=== PATIENT | female | born 2000 | race Two or more races ===

== ENCOUNTER 2019-09-23 19:40 | Emergency (ER) | payer OTHER ==
--- NOTE | 2019-09-23 20:05 | PDOC ---
Rapid Medical Evaluation Time Seen by Provider: 09/23/19 20:04 Medical Evaluation: 09/23/19 20:04 I have performed a brief in-person evaluation of this patient. The patient presents with a chief complaint of: R great toe infection Pertinent physical exam findings: paronychia with ingrown toenail to R great toe I have ordered the following: nothing The patient will proceed to the ED for further evaluation. Discharge Disposition - Diagnosis Paronychia of great toe of right foot - Referrals - Patient Instructions - Post Discharge Activity
[2019-09-23 20:09] VITALS: BP 117/71; PULSE 80; TEMP 97.2; BMI 21.7
--- NOTE | 2019-09-23 21:21 | PDOC ---
History of Present Illness - General Chief Complaint: Wound Stated Complaint: RIGHT FIRST TOE INFECTION Time Seen by Provider: 09/23/19 20:04 - History of Present Illness Initial Comments: 09/23/19 21:18 19-year-old female without comorbidities presents for evaluation of right great toe pain x1 week no systemic symptoms Past History - Past Medical History Allergies/Adverse Reactions: Allergies Allergy/AdvReac Type Severity Reaction Status Date / Time sulfamethoxazole Allergy Verified 09/23/19 20:06 [From Bactrim] trimethoprim [From Bactrim] Allergy Verified 09/23/19 20:06 Home Medications: Ambulatory Orders Cephalexin [Keflex] 500 mg PO QID 5 Days #20 capsule 09/23/19 COPD: No - Psycho Social/Smoking Cessation Hx Smoking History: Never smoked Hx Alcohol Use: No Drug/Substance Use Hx: No Review of Systems - Review of Systems Musculoskeletal: Yes: Joint Pain *Physical Exam - Vital Signs Last Vital Signs Temp Pulse Resp BP Pulse Ox 97.2 F L 80 18 117/71 98 09/23/19 20:07 09/23/19 20:07 09/23/19 20:07 09/23/19 20:07 09/23/19 20:07 - Physical Exam 09/23/19 21:18 There is erythema induration and tenderness without fluctuance at the lateral nail fold of the right great toe there are no gross sensorimotor deficits. Medical Decision Making - Medical Decision Making 09/23/19 21:18 Under aseptic technique a digital block was introduced using 5 cc of 1% lidocaine without epinephrine this was tolerated well the lateral border of the great toe was removed Xeroform dressing was placed this was tolerated well Discharge - Discharge Information Problems reviewed: Yes Clinical Impression/Diagnosis: Ingrowing nail, right great toe Clinical Impression/Diagnosis: (Ruled Out): Paronychia of great toe of right foot Condition: Stable Disposition: HOME - Admission No - Follow up/Referral Referrals: Bhavana Nuno MD [Staff Physician] - - Patient Discharge Instructions Patient Printed Discharge Instructions: DI for Ingrown Toenail, DI for Ingrown Toenail Removal Additional Instructions: Please keep the dressing on for the next 2 days. Remove the dressing in 2 days and wash the area and keep it clean with soap and water. Leave it open to air as much as possible. Return to the emergency room for worsening symptoms. Please take the antibiotics as directed. Follow-up with podiatry without fail in 2 to 3 days for further evaluation and treatment options. - Post Discharge Activity
== END 2019-09-23 21:21 | disposition home or self-care (01) ==
LOC: JERFT 19:40
PROC: 0HBRXZZ Excision of Toe Nail, External Approach (ICD-10-PCS; principal; 2019-09-23)
DX: L60.0 Ingrowing nail (principal); Z88.8 Allergy status to other drugs, medicaments and biological substances
CPT/HCPCS: 99281-25

== ENCOUNTER 2019-10-22 21:52 | Emergency (ER) | payer OTHER ==
[2019-10-22 23:03] VITALS: BP 112/72; PULSE 82; TEMP 98.3; BMI 21.7
--- NOTE | 2019-10-22 23:20 | PDOC ---
History of Present Illness - General Chief Complaint: Laceration Stated Complaint: FINGER LACERATION Time Seen by Provider: 10/22/19 23:19 - History of Present Illness Initial Comments: 19 year old female with no PMH presenting to our ED after accidentally cutting her left middle finger while dicing broccoli. 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 She noted moderate bleeding and pain. Denies fevers, chills, or other symptoms. 10/23/19 06:50 Past History - Past Medical History Allergies/Adverse Reactions: Allergies Allergy/AdvReac Type Severity Reaction Status Date / Time sulfamethoxazole Allergy Verified 09/23/19 20:06 [From Bactrim] trimethoprim [From Bactrim] Allergy Verified 09/23/19 20:06 Home Medications: Ambulatory Orders Cephalexin [Keflex] 500 mg PO QID 5 Days #20 capsule 09/23/19 COPD: No - Psycho Social/Smoking Cessation Hx Smoking History: Never smoked Hx Alcohol Use: Yes (socially, weekly) Drug/Substance Use Hx: Yes (marijuana) Review of Systems - Review of Systems Constitutional: No: Chills, Diaphoresis, Fever, Loss of Appetite HEENTM: No: Eye Pain, Blurred Vision, Tearing Respiratory: No: Cough, Orthopnea, Shortness of Breath Cardiac (ROS): No: Edema, Irregular Heart Rate ABD/GI: No: Diarrhea, Nausea, Vomiting : No: Dysuria, Discharge, Frequency Musculoskeletal: No: Muscle Pain, Muscle Weakness Integumentary: No: Bruising, Lesions, Lumps, Pallor Neurological: No: Headache, Numbness, Paresthesia Psychiatric: No: Anxiety, Depression Hematologic/Lymphatic: No: Anemia, Blood Clots, Easy Bleeding *Physical Exam - Vital Signs Last Vital Signs Temp Pulse Resp BP Pulse Ox 98.3 F 82 18 112/72 99 10/22/19 23:00 10/22/19 23:00 10/22/19 23:00 10/22/19 23:00 10/22/19 23:00 - Physical Exam General Appearance: Yes: Nourished, Appropriately Dressed. No: Apparent Distress HEENT: positive: EOMI, PATY, Normal ENT Inspection, Normal Voice Neck: positive: Trachea midline, Normal Thyroid, Supple. negative: Tender, Rigid Respiratory/Chest: positive: Lungs Clear, Normal Breath Sounds. negative: Chest Tender, Respiratory Distress, Accessory Muscle Use Cardiovascular: positive: Regular Rhythm, Regular Rate Gastrointestinal/Abdominal: positive: Normal Bowel Sounds, Flat, Soft. negative : Tender Lymphatic: negative: Adenopathy, Tenderness Musculoskeletal: positive: Normal Inspection. negative: Decreased Range of Motion Extremity: positive: Normal Capillary Refill, Normal Inspection, Normal Range of Motion. negative: Tender Integumentary: positive: Normal Color, Dry, Warm Neurologic: positive: Fully Oriented, Alert, Normal Mood/Affect, Normal Response , Motor Strength 5/5 Procedures - Laceration/Wound Repair Left Distal Dorsal 3rd digit Wound Length: to 2.5 cm Wound Explored: clean Wound's Depth, Shape: irregular Irrigated w/ Saline: Yes Betadine Prep: No Wound Repaired With: Dermabond Sterile Dressing Applied: Yes Splint Applied: No Medical Decision Making - Medical Decision Making 19 year old female with up to date tetanus presenting with left middle posterior finger laceration which was clean and further irrigated with 500 ml NS and repaired with good approximation and hemostasis using dermabond. 10/23/19 06:55 Discharge - Discharge Information Problems reviewed: Yes Clinical Impression/Diagnosis: Finger laceration Qualifiers: Encounter type: initial encounter Finger: middle finger Damage to nail status: with damage Foreign body presence: without foreign body Laterality: left Qualified Code(s): S61.313A - Laceration without foreign body of left middle finger with damage to nail, initial encounter Condition: Improved Disposition: HOME - Admission No - Follow up/Referral Referrals: [facility] [place] [facility] [Provider Group] - Patient Discharge Instructions Patient Printed Discharge Instructions: DI for Laceration Repair Additional Instructions: Please use the gloves when you are taking a shower. Please keep your finger clean and dry for the next 4-5 days, after that you may wash it gently with warm water. Please return to the ED if you have worsening swelling, pain, fevers , chills, or fluid coming out of your finger. Please see your PCP in two weeks. Please cut using your knuckles rather than finger tips. - Post Discharge Activity
--- NOTE | 2019-10-22 23:42 | PDOC ---
Attending Attestation - Resident Resident Name: Carolyn Alvarez - ED Attending Attestation I have performed the following: I have examined & evaluated the patient, The case was reviewed & discussed with the resident, I agree w/resident's findings & plan - HPI HPI: 10/22/19 23:41 see resident hpi - Physicial Exam PE: 10/22/19 23:41 agree with resident exam - Medical Decision Making 10/22/19 23:41 19-year-old female with laceration to the fingertip sustained with a kitchen knife while cutting vegetables There is no active bleeding Laceration is not over a joint Plan for Steri-Strips with tissue adhesive and bulky bandage with discharge/ wound care instructions after cleansing
== END 2019-10-23 00:14 | disposition home or self-care (01) ==
LOC: JER 21:52
PROC: 0HQGXZZ Repair Left Hand Skin, External Approach (ICD-10-PCS; principal; 2019-10-22)
DX: S61.313A Laceration without foreign body of left middle finger with damage to nail, initial encounter (principal); Z88.0 Allergy status to penicillin; W26.0XXA Contact with knife, initial encounter; Y93.G3 Activity, cooking and baking; Y92.89 Other specified places as the place of occurrence of the external cause
CPT/HCPCS: 99282-25

== ENCOUNTER 2019-11-15 16:15 | Emergency (ER) | payer OTHER ==
[2019-11-15 16:38] VITALS: BP 122/80; PULSE 87; TEMP 98.2; BMI 21.7
--- NOTE | 2019-11-15 17:37 | PDOC ---
Attending Attestation - Resident Resident Name: CeciadrianaRenMonica - ED Attending Attestation I have performed the following: I have examined & evaluated the patient, The case was reviewed & discussed with the resident, I agree w/resident's findings & plan - HPI HPI: 11/15/19 21:23 see resident hpi - Physicial Exam PE: 11/15/19 21:23 see resident exam - Medical Decision Making 11/15/19 21:23 19-year-old female with dysuria and right-sided pelvic pain Patient states she is sexually active but is always protected with condoms On exam there is right lower quadrant tenderness, pelvic exam shows physiologic discharge with no cervical motion tenderness CT scan of the abdomen and pelvis shows some free pelvic fluid, appendix is normal Urine is nitrate positive with a small amount of bacteria Plan for ultrasound to evaluate for cyst/torsion risk Plan for DC home on antibiotics for clinical UTI with CONSTRUCTION CONSULTANT follow-up
--- NOTE | 2019-11-15 18:03 | PDOC ---
History of Present Illness - General Chief Complaint: Pain, Acute Stated Complaint: VOMITING/ABD PAIN Time Seen by Provider: 11/15/19 17:35 - History of Present Illness Initial Comments: 11/15/19 18:03 Pt is a 19y/o female with hx of ?atrophic kidney who presents with 3 days of dysuria at the beginning of urination. She reports associated pelvic pain and diarrhea. Earlier today she had nausea and vomiting, but it has resolved. Pt reports drinking energy drinks the last 3 days and took Azo, which she associates with a change in urine color. She denies fever, chills, hematuria, frequency, back pain, and vaginal discharge. Pt is sexually active and uses condoms. She reports 1-2 UTIs as a teenager but has not had one recently. Past History - Past Medical History Allergies/Adverse Reactions: Allergies Allergy/AdvReac Type Severity Reaction Status Date / Time sulfamethoxazole Allergy Verified 11/15/19 16:34 [From Bactrim] trimethoprim [From Bactrim] Allergy Verified 11/15/19 16:34 Home Medications: Ambulatory Orders Nitrofurantoin Monohyd/M-Cryst [Macrobid -] 100 mg PO BID #14 capsule 11/15/19 COPD: No Kidney Stones: No - Surgical History Abdominal Surgery: No - Psycho Social/Smoking Cessation Hx Smoking History: Never smoked Hx Alcohol Use: Yes (socially, weekly) Drug/Substance Use Hx: Yes (marijuana) Review of Systems - Review of Systems Constitutional: No: Chills, Fever ABD/GI: Yes: Diarrhea, Nausea, Vomiting : Yes: Dysuria. No: Frequency Musculoskeletal: No: Back Pain *Physical Exam - Vital Signs Last Vital Signs Temp Pulse Resp BP Pulse Ox 98.2 F 87 18 122/80 100 11/15/19 16:36 11/15/19 16:36 11/15/19 16:36 11/15/19 16:36 11/15/19 16:36 - Physical Exam General Appearance: Yes: Nourished, Appropriately Dressed. No: Apparent Distress HEENT: positive: EOMI, PATY Neck: positive: Trachea midline Respiratory/Chest: positive: Lungs Clear Cardiovascular: positive: Regular Rhythm, Regular Rate. negative: Murmur Female Pelvic Exam: positive: discharge (physiologic). negative: CMT Gastrointestinal/Abdominal: positive: Normal Bowel Sounds, Tender (pelvic) Musculoskeletal: negative: CVA Tenderness Neurologic: positive: Fully Oriented, Alert, Normal Mood/Affect ED Treatment Course - LABORATORY CBC & Chemistry Diagram: 11/15/19 19:50 11/15/19 19:50 Medical Decision Making - Medical Decision Making 11/15/19 18:18 Pt is a 19y/o female with hx of ?atrophic kidney who presents with 3 days of dysuria at the beginning of urination. She reports associated pelvic pain and diarrhea. Earlier today she had nausea and vomiting, but it has resolved. Pt reports drinking energy drinks the last 3 days and took Azo, which she associates with a change in urine color. She denies fever, chills, hematuria, frequency, and back pain. She reports 1-2 UTIs as a teenager but has not had one recently. ddx: UTI, unlikely orders: UA, UPT, urine cx 11/15/19 19:39 UA nitrite positive, 25 bacteria UPT negative RLQ tenderness on palpation CT abdomen/pelvis r/o appendicitis CBC CMP 11/15/19 21:02 CT right vaginal wall cyst, recently left ruptured ovarian cyst, free fluid in pelvis CBC, CMP unremarkable send GC chlamydia will treat UTI with Macrobid 11/15/19 22:22 TVUS left ruptured ovarian cyst with free pelvic fluid Discharge - Discharge Information Problems reviewed: Yes Clinical Impression/Diagnosis: UTI (urinary tract infection) Qualifiers: Urinary tract infection type: acute cystitis Hematuria presence: without hematuria Qualified Code(s): N30.00 - Acute cystitis without hematuria Ovarian cyst Qualifiers: Laterality: left Qualified Code(s): N83.202 - Unspecified ovarian cyst, left side Condition: Stable Disposition: HOME - Additional Discharge Information Prescriptions: Nitrofurantoin Monohyd/M-Cryst [Macrobid -] 100 mg PO BID #14 capsule - Follow up/Referral - Patient Discharge Instructions Patient Printed Discharge Instructions: DI for Urinary Tract Infection (UTI) Additional Instructions: You were seen in the emergency room for abdominal pain and burning with urination. You were found to have a urinary tract infection and a ruptured left ovarian cyst. You are able to go home and finish your care as an outpatient. Take the antibiotic Macrobid 100mg twice a day for 7 days. You care is not complete until you follow up with an SENIOR DIRECTOR OF STRATEGY. Please call this week and make an appointment. Return to the emergency room or call your primary care doctor if your pain gets worse or develop a fever above 101. - Post Discharge Activity
[2019-11-15 19:07] LABS: EPI CELLS 1.7 /HPF (0-5/HPF); HYALINE CASTS 1 /lpf (0-8); URINE APPEARANCE TURBID; URINE BACTERIA 25.4 /hpf (NEGATIVE); URINE BILIRUBIN NEGATIVE (NEGATIVE); URINE COLOR DK YELLOW; URINE GLUCOSE (UA) NEGATIVE (NEGATIVE); URINE KETONE NEGATIVE (NEGATIVE); URINE LEUK ESTERASE NEGATIVE (NEGATIVE); URINE NITRITE POSITIVE (NEGATIVE); URINE PROTEIN NEGATIVE (NEGATIVE); URINE RBC 4 /hpf (0-4); URINE WBC 1 /hpf (0-5)
[2019-11-15 20:12] LABS: BASO % 0.3 % (0-2.0); EOS % 1.8 % (0-4.5); HEMATOCRIT 39.5 % (32.4-45.2); HEMOGLOBIN 13.2 GM/dL (10.7-15.3); LYMPH % 35.5 % (8-40); MCH 29.8 pg (25.7-33.7); MCHC 33.3 g/dl (32.0-36.0); MEAN CELL VOLUME 89.5 fl (80-96); MONO % 6.3 % (3.8-10.2); NEUT % 56.1 % (42.8-82.8); PLATELET COUNT 230 K/MM3 (134-434); RBC 4.42 M/mm3 (3.60-5.2); RDW 14.4 % (11.6-15.6); WHITE BLOOD COUNT 6.2 K/mm3 (4.0-10.0)
[2019-11-15 20:43] LABS: ALBUMIN 4.3 g/dl (3.4-5.0); BILIRUBIN,TOTAL 0.4 mg/dL (0.2-1); BLOOD UREA NITROGEN 15.7 mg/dL (7-18); CALCIUM 9.2 mg/dL (8.5-10.1); CREATININE 0.7 mg/dL (0.55-1.3); POTASSIUM 3.9 mmol/L (3.5-5.1); TOT PROT 7.5 g/dl (6.4-8.2)
== END 2019-11-15 22:41 | disposition home or self-care (01) ==
LOC: JER 16:15
DX: N30.00 Acute cystitis without hematuria (principal); N83.202 Unspecified ovarian cyst, left side
CPT/HCPCS: 36415; 74177-TC; 76830-TC; 80053; 81003; 84703; 85025; 87086; 87491; 87591; 99283-25; Q9967